=== PATIENT | male | born 1975 | race Two or more races ===

== ENCOUNTER 2017-04-07 16:30 | Emergency (ER) | payer SELFPAY ==
--- NOTE | 2017-04-07 17:06 | EDPHY ---
H & P Stated Complaint: back pain HPI/ROS: HPI CHIEF COMPLAINT: Back pain HISTORY OF PRESENT ILLNESS: This patient is a 41-year-old male he is otherwise healthy, does not take any daily medications he presents emergency room with back pain time 16 days. Patient reports after flying for 19 hours from [facility] to drop his son off at college and lifting for very heavy suitcases he develops midline thoracic back pain high up. Inferior to cervical spine. It is paravertebral and midline. He states been present for approximately 16 days. He has had no chest pain he denies any shortness of breath. He denies fever. He denies direct trauma to this area. He denies numbness or tingling or arm weakness. Pain is located upper thoracic spine it is worse with certain movements and standing. Better at rest and lying. Currently 4/10 pain. Been present for 16 days he did get relief with massage at 1 point. Past Medical History: Denies significant medical history specifically no history DVT or PE. Past Surgical History: Denies significant surgical history Social History: Denies daily use of drugs alcohol tobacco products lives in [facility]. Assistant Customer Service Manager Family History: Noncontributory ROS REVIEW OF SYSTEMS: A comprehensive 10 point review of systems is otherwise negative aside from elements mentioned in the history of present illness. Exam Constitutional appears well nontoxic triage nursing summary reviewed, vital signs reviewed, awake/alert. Eyes normal conjunctivae and sclera, EOMI, PERRLA. HENT normal inspection, atraumatic, moist mucus membranes, no epistaxis, neck supple/ no meningismus, no raccoon eyes. Respiratory clear to auscultation bilaterally, normal breath sounds, no respiratory distress, no wheezing. Cardiovascular rate normal, regular rhythm, no murmur, no edema, distal pulses normal. Gastrointestinal soft, non-tender, no rebound, no guarding, normal bowel sounds, no distension, no pulsatile mass. Genitourinary no CVA tenderness. Musculoskeletal back exam: There is no significant midline tenderness is no step-offs there is no crepitus, I do not appreciate any swelling or redness. full range of motion, no calf swelling, no tenderness of extremities, no meningismus, good pulses, neurovascularly intact. Skin pink, warm, & dry, no rash, skin atraumatic. Neurologic awake, alert and oriented x 3, AAOx3, moves all 4 extremities equally, motor intact, sensory intact, CN II-XII intact, normal cerebellar, normal vision, normal speech. Psychiatric normal mood/affect. Heme/Lymph/Immune no lymphadenopathy. Differential Diagnosis: Includes but is not limited to in a particular order musculoskeletal back pain, pulmonary embolism, muscle spasm, infection Medical Decision Making: Plan for this patient IV establishment blood draw, EKG , check D-dimer, check troponin. I think this is unlikely to be acute coronary syndrome or PE most likely musculoskeletal that this patient most likely benefit from musculoskeletal anti-inflammatories. Re-evaluation: EKG interpretation by me on record in [employer] system. Impression time of EKG 1724, this is sinus rhythm rate of 65. Unremarkable EKG there is no acute ischemia appreciated. No signs of cardiac arrhythmia. Specifically no ST elevation ST depression or significant T-wave abnormalities. Unremarkable EKG. Interpreted by myself. 1840: This patient is resting comfortably. No acute distress. EKG is unremarkable. Negative troponin. Negative D-dimer. Chest x-ray thoracic spine x-ray reviewed. No evidence of significant abnormality. Clinically on exam he has pain gets worse with range of motion of his arms and truncal axial motion, as well as standing up this most likely musculoskeletal back pain. His clinical history is consistent with most likely musculoskeletal injury. Will place patient on anti-inflammatories he specifically asking for celecoxib. He denies any abdominal pain, chest pain, back pain, neck pain. Pain is located upper thoracic time 16 days. Recommend anti-inflammatories. Also return precautions given he understands return to the emergency room if develops worsening back pain shortness of breath or chest pain. I think aortic dissection is unlikely. Given musculoskeletal nature worse with movement as well as story present for 16 days after lifting heavy suitcases. He understands return if he has worsening symptoms questions or concerns. Again EKG is nonischemic negative troponin negative D-dimer. Return precautions given he understands. Source: Patient - Personal History Current Tetanus Diphtheria and Acellular Pertussis (TDAP): Yes - Medical/Surgical History Hx Asthma: No Hx Chronic Respiratory Disease: No Hx Diabetes: No Hx Cardiac Disease: No Hx Renal Disease: No Hx Cirrhosis: No Hx Alcoholism: No Hx HIV/AIDS: No Hx Splenectomy or Spleen Trauma: No Other PMH: denies - Social History Smoking Status: Never smoked Constitutional: Initial Vital Signs Temperature (C) 36.8 C 04/07/17 16:39 Heart Rate 68 04/07/17 16:39 Respiratory Rate 16 04/07/17 16:39 Blood Pressure 147/69 H 04/07/17 16:39 O2 Sat (%) 99 04/07/17 16:39 O2 Delivery Mode Room Air Allergies/Adverse Reactions: No Known Allergies Allergy (Unverified 04/07/17 16:38) Home Medications: Medication Instructions Recorded celeCOXIB [Celecoxib] 50 mg PO DAILY #14 capsule 04/07/17 Medical Decision Making - Diagnostics Imaging Results: Imaging Impressions Chest X-Ray 04/07/17 17:15 Impression: Mild peribronchial thickening suggesting airways disease/bronchitis. Thoracic Spine X-Ray 04/07/17 17:15 Impression: Minimal degenerative change with no visible etiology for the patient 's pain. - Data Points Laboratory Results: Laboratory Results 04/07/17 17:30 04/07/17 17:30 04/07/17 04/07/17 04/07/17 17:30 17:30 17:30 WBC 3.67 10^3/uL L 10^3/uL (3.80-9.50) RBC 6.21 10^6/uL 10^6/uL (4.40-6.38) Hgb 14.7 g/dL g/dL (13.7-17.5) Hct 46.3 % % (40.0-51.0) MCV 74.6 fL L fL (81.5-99.8) MCH 23.7 pg L pg (27.9-34.1) MCHC 31.7 g/dL L g/dL (32.4-36.7) RDW 14.1 % % (11.5-15.2) Plt Count 145 10^3/uL L 10^3/uL (150-400) MPV TNP Neut % (Auto) 33.3 % L % (39.3-74.2) Lymph % (Auto) 48.2 % H % (15.0-45.0) [place] % (Auto) 9.0 % % (4.5-13.0) Eos % (Auto) 8.4 % H % (0.6-7.6) Baso % (Auto) 1.1 % % (0.3-1.7) Nucleat RBC Rel Count 0.0 % % (0.0-0.2) Absolute Neuts (auto) 1.22 10^3/uL L 10^3/uL (1.70-6.50) Absolute Lymphs (auto) 1.77 10^3/uL 10^3/uL (1.00-3.00) Absolute Monos (auto) 0.33 10^3/uL 10^3/uL (0.30-0.80) Absolute Eos (auto) 0.31 10^3/uL 10^3/uL (0.03-0.40) Absolute Basos (auto) 0.04 10^3/uL 10^3/uL (0.02-0.10) Absolute Nucleated RBC 0.00 10^3/uL 10^3/uL (0-0.01) Immature Gran % 0.0 % % (0.0-1.1) Immature Gran # 0.00 10^3/uL 10^3/uL (0.00-0.10) D-Dimer < 0.27 ug/mLFEU ug/mLFEU (0.00-0.50) Sodium 139 mEq/L mEq/L (134-144) Potassium 4.0 mEq/L mEq/L (3.5-5.2) Chloride 101 mEq/L mEq/L (97-110) Carbon Dioxide 27 mEq/l mEq/l (22-31) Anion Gap 11 mEq/L mEq/L (8-16) BUN 16 mg/dL mg/dL (7-23) Creatinine 1.1 mg/dL mg/dL (0.7-1.3) Estimated GFR > 60 Glucose 102 mg/dL H mg/dL (70-100) Calcium 9.9 mg/dL mg/dL (8.5-10.4) Creatine Kinase 53 IU/L IU/L (0-224) CK-MB (CK-2) Fraction 0.47 ng/mL ng/mL (0.00-3.19) Troponin I < 0.012 ng/mL ng/mL (0.000-0.034) Medications Given: Discontinued Medications Sodium Chloride (Ns) 500 mls @ 1,000 mls/hr IV EDNOW ONE PRN Reason: Protocol Stop: 04/07/17 17:43 Last Admin: 04/07/17 17:39 Dose: 500 mls Departure - Departure Disposition: Home, Routine, Self-Care Clinical Impression: Back pain Qualifiers: Back pain location: thoracic back pain Chronicity: acute Back pain laterality: bilateral Qualified Code(s): M54.6 - Pain in thoracic spine Condition: Good Instructions: Back Pain (ED) Additional Instructions: 1. Return to the emergency room immediately if he develops worsening pain this includes worsening chest pain, shortness of breath or worsening back pain. 2. Try anti-inflammatory pain medicine for the next few days to see if this gives her improvement. 3. Return if worse. Referrals: NONE *PRIMARY CARE P,. [Primary Care Provider] - As per Instructions Prescriptions: celeCOXIB [Celecoxib] 50 mg PO DAILY #14 capsule
[2017-04-07] MEDS ORDERED: NS 500 ML IV ONE (17:14)
--- NOTE | 2017-04-07 17:27 | CPEKG ---
Heart Rate: 65 RR Interval: 923 P-R Interval: 164 QRSD Interval: 94 QT Interval: 372 QTC Interval: 387 P [place]: 31 QRS [place]: 54 T Wave [place]: 38 EKG Severity - NORMAL ECG - EKG Impression: SINUS RHYTHM Electronically Signed By: Jose Antonio Nam 13-Apr-2017 11:48:29
[2017-04-07 17:37] LABS: ADD DIFF? NO; ADD MORPH? NO; ADD SCAN? NO; ATYPICAL LYMPHOCYTE FLAG 0 (0-99); FRAGMENT RBC FLAG 0 (0-99); HEMATOCRIT 46.3 % (40.0-51.0); HEMOGLOBIN 14.7 g/dL (13.7-17.5); LEFT SHIFT FLG 0 (0-99); LIPEMIA HEMOLYSIS FLAG 80 (0-99); MEAN CELL HEMOGLOBIN 23.7 pg (27.9-34.1); MEAN CELL HEMOGLOBIN CONCENTR. 31.7 g/dL (32.4-36.7); MEAN CELL VOLUME 74.6 fL (81.5-99.8); PLATELET CLUMPS FLAG 10 (0-99); PLATELET COUNT 145 10^3/uL (150-400); RED BLOOD CELL COUNT 6.21 10^6/uL (4.40-6.38); RED CELL DISTRIBUTION WIDTH 14.1 % (11.5-15.2)
[2017-04-07 17:44] LABS: ANION GAP 11 mEq/L (8-16); CALCIUM 9.9 mg/dL (8.5-10.4); CARBON DIOXIDE 27 mEq/l (22-31); CHLORIDE 101 mEq/L (97-110); CREATININE 1.1 mg/dL (0.7-1.3); GLOMERULAR FILTRATION RATE > 60; GLUCOSE 102 mg/dL (70-100); SODIUM 139 mEq/L (134-144)
[2017-04-07 17:56] LABS: CREATINE KINASE-MB FRACTION 0.47 ng/mL (0.00-3.19); TROPONIN I < 0.012 ng/mL (0.000-0.034)
[2017-04-07] MEDS ORDERED: KETOROLAC 15 MG/1 ML SDV IVP ONE (18:39)
[2017-04-07] MEDS ORDERED: NS 1,000 ML IV ONE (18:50)
[2017-04-07] MEDS ORDERED: IOPAMIDOL (ISOVUE 370) 100 ML BTL IV ONE (18:55)
[2017-04-07 20:11] VITALS: BP 123/79; PULSE 67; RESP 18; TEMP 97.9; O2SAT 96
== END 2017-04-07 20:11 | disposition home or self-care (01) ==
DX: M54.6 Pain in thoracic spine (principal); E86.9 Volume depletion, unspecified
CPT/HCPCS: 96374; J1885; Q9967